=== PATIENT | female | born 1990 | race African-American/Black ===

== ENCOUNTER 2022-07-10 10:02 | Emergency (ER) | payer SELFPAY ==
[2022-07-10] MEDS ORDERED: LORAZEPAM 1 MG TABLET ONE (10:23)
[2022-07-10 11:15] LABS: Troponin High Sensitivity 4.5 pg/mL (<58.9)
[2022-07-10 11:33] LABS: Absolute Lymphocytes (CBC) 2.5 K/uL (0.7-4.9); Hematocrit 42.4 % (36.0-45.0); Lymphocytes % 29.2 % (15.3-44.8); MCV 92.9 fL (80-100); RBC Red Blood Cell Count 4.57 M/uL (3.86-4.86)
--- NOTE | 2022-07-10 11:40 | ER ---
Nurse's Notes [facility] Name: Milagro Steele Age: 31 yrs Sex: Female : 1990 Arrival Date: 07/10/2022 Time: 10:07 Bed 5 Private MD: Diagnosis: Generalized anxiety disorder Presentation: 07/10 10:10 Chief complaint: Patient states: came from [facility], they are having trouble kr3 keeping her blood pressure down and the back of my head feels like someone is hitting it. when taking a deep breath it causes chest pain. Coronavirus screen: Vaccine status: Patient reports being unvaccinated. Client denies travel out of the [place] in the last 14 days. Ebola Screen: Patient denies travel to an Ebola-affected area in the 21 days before illness onset. Initial Sepsis Screen: Does the patient meet any 2 criteria? No. Patient's initial sepsis screen is negative. Does the patient have a suspected source of infection? No. Patient's initial sepsis screen is negative. Risk Assessment: Do you want to hurt yourself or someone else? Patient reports no desire to harm self or others. Onset of symptoms was July 09, 2022. 10:10 Method Of Arrival: Ambulatory kr3 10:10 Acuity: SAM 3 kr3 Triage Assessment: 10:18 General: Appears distressed, uncomfortable, Behavior is cooperative, appropriate for kr3 age, anxious, crying. Pain: Complains of pain in chest and back with inspiration. Historical: - Allergies: 10:14 No Known Allergies; kr3 - PMHx: 10:14 Hypertensive disorder; Anxiety; Depressive disorder; kr3 - PSHx: 10:14 removal of ovarian cyst; kr3 - Immunization history:: Adult Immunizations not up to date. - Social history:: Smoking status: Patient reports the use of cigarette tobacco products, smokes one-half pack cigarettes per day. Screenin:48 Abuse screen: Denies threats or abuse. Nutritional screening: No deficits noted. vg1 Tuberculosis screening: No symptoms or risk factors identified. Fall Risk No fall in past 12 months (0 pts). No secondary diagnosis (0 pts). IV access (20 points). Ambulatory Aid- None/Bed Rest/Nurse Assist (0 pts). Gait- Normal/Bed Rest/Wheelchair (0 pts) Mental Status- Oriented to own ability (0 pts). Total Guzmán Fall Scale indicates No Risk (0-24 pts). Assessment: 10:22 General: Appears uncomfortable, obese, Behavior is cooperative, anxious, crying. Pain: vg1 Complains of pain in chest Pain currently is 10 out of 10 on a pain scale. Pain began 1 day ago. Noted to be crying. Neuro: Level of Consciousness is awake, alert, obeys commands, Oriented to person, place, time, situation, Reports blurred vision headache photophobia. Cardiovascular: Patient's skin is warm and dry. Respiratory: Airway is patent Respiratory effort is even, unlabored. GI: Abdomen is distended, non-distended, Patient currently denies nausea, tolerance of food. : No signs and/or symptoms were reported regarding the genitourinary system. EENT: No signs and/or symptoms were reported regarding the EENT system. Derm: Skin is pink, warm \T\ dry. Musculoskeletal: Circulation, motion, and sensation intact. 12:35 Reassessment:. Neuro: Level of Consciousness is awake, alert, obeys commands, Oriented aa5 to person, place, time, situation. Respiratory: Airway is patent Respiratory effort is even, unlabored, Respiratory pattern is regular, symmetrical. Derm: Skin is dry, Skin is normal, Skin temperature is warm. 12:35 General: Appears comfortable. aa5 Vital Signs: 10:10 BP 130 / 86; Pulse 82; Resp 20; Temp 98.9; Pulse Ox 100% on R/A; Weight 122.47 kg; kr3 Height 5 ft. 4 in. (162.56 cm); Pain 10/10; 10:30 BP 140 / 101; Pulse 80; Resp 17; Pulse Ox 99% on R/A; vg1 11:07 BP 119 / 83; Pulse 76; Resp 20; Pulse Ox 99% on R/A; vg1 10:10 Body Mass Index 46.34 (122.47 kg, 162.56 cm) kr3 ED Course: 10:07 Patient arrived in ED. am2 10:07 [facility] jh7 10:07 John Oh MD is Attending Physician. jh7 10:14 Triage completed. kr3 10:19 Arm band placed on right wrist. kr3 10:20 Joan Ferrara, RN is Primary Nurse. vg1 10:40 Missed attempt(s): 20 gauge in left antecubital area. Bleeding controlled, band aid aa5 applied, catheter tip intact. 10:42 Initial lab(s) drawn, by me, sent to lab. Inserted saline lock: 22 gauge in left aa5 antecubital area, using aseptic technique. Blood collected. 10:48 Patient has correct armband on for positive identification. Placed in gown. Bed in low vg1 position. Call light in reach. Side rails up X 1. Client placed on continuous cardiac and pulse oximetry monitoring. NIBP monitoring applied. 12:35 No provider procedures requiring assistance completed. IV discontinued, intact, aa5 bleeding controlled, No redness/swelling at site. Pressure dressing applied. Administered Medications: 10:22 Drug: Ativan (LORazepam) 1 mg Route: PO; vg1 Medication: 10:22 VIS not applicable for this client. vg1 Outcome: 11:40 Discharge ordered by . 7 12:35 Discharged to home ambulatory. aa5 12:35 Condition: improved 12:35 Discharge instructions given to patient, Instructed on discharge instructions, follow up and referral plans. Demonstrated understanding of instructions, follow-up care. 12:38 Patient left the ED. Signatures: Sherry Harley, RN RN aa5 Debi Nicholson RN RN Eunice Duffy Victoria, RN RN vg1 Radha Kumari, PRODUCTION SERVICE MANAGER PRODUCTION SERVICE MANAGER 7 Jessica Avilez RN RN kr3
--- NOTE | 2022-07-10 11:40 | EDPHYS ---
Physician Documentation [facility] Name: Milagro Steele Age: 31 yrs Sex: Female : 1990 Arrival Date: 07/10/2022 Time: 10:07 Bed 5 Private MD: John Guerin HPI: 07/10 10:19 This 31 yrs old Black Female presents to ER via Ambulatory with complaints of High jh7 Blood Pressure. 10:19 The patient has elevated blood pressure and discovered this [facility]. Onset: The jh7 symptoms/episode began/occurred 2 day(s) ago. Associated signs and symptoms: Pertinent positives: headache, Anxiety, Pertinent negatives: chest pain, dizziness, dyspnea, nausea, visual changes, vomiting. 31-year-old female presents for anxiety and hypertension for 2 days. The patient states she was seeking rehab at [facility] but that her blood pressure was elevated so they sent her to the ER. States that she has a history of anxiety and high blood pressure, but does not take any medication. Denies chest pain, SOB, dizziness, syncope, or visual changes.. Historical: - Allergies: 10:14 No Known Allergies; kr3 - PMHx: 10:14 Hypertensive disorder; Anxiety; Depressive disorder; kr3 - PSHx: 10:14 removal of ovarian cyst; kr3 - Immunization history:: Adult Immunizations not up to date. - Social history:: Smoking status: Patient reports the use of cigarette tobacco products, smokes one-half pack cigarettes per day. ROS: 10:19 Constitutional: Negative for fever, chills, and weight loss, Eyes: Negative for injury, jh7 pain, redness, and discharge, ENT: Negative for injury, pain, and discharge, Neck: Negative for injury, pain, and swelling, Cardiovascular: Negative for chest pain, palpitations, and edema, Respiratory: Negative for shortness of breath, cough, wheezing, and pleuritic chest pain, Back: Negative for injury and pain, MS/Extremity: Negative for injury and deformity, Skin: Negative for injury, rash, and discoloration, Neuro: Negative for headache, weakness, numbness, tingling, and seizure. 10:19 Psych: Positive for anxiety, Negative for depression. 10:19 All other systems are negative. Exam: 10:19 Head/Face: Normocephalic, atraumatic. Eyes: Pupils equal round and reactive to light, [facility] extra-ocular motions intact. Lids and lashes normal. Conjunctiva and sclera are non-icteric and not injected. Cornea within normal limits. Periorbital areas with no swelling, redness, or edema. Cardiovascular: Regular rate and rhythm with a normal S1 and S2. No gallops, murmurs, or rubs. Normal PMI, no JVD. No pulse deficits. Respiratory: Lungs have equal breath sounds bilaterally, clear to auscultation and percussion. No rales, rhonchi or wheezes noted. No increased work of breathing, no retractions or nasal flaring. Abdomen/GI: Soft, non-tender, with normal bowel sounds. No distension or tympany. No guarding or rebound. No evidence of tenderness throughout. Back: No spinal tenderness. No costovertebral tenderness. Full range of motion. Skin: Warm, dry with normal turgor. Normal color with no rashes, no lesions, and no evidence of cellulitis. MS/ Extremity: Pulses equal, no cyanosis. Neurovascular intact. Full, normal range of motion. Neuro: Awake and alert, GCS 15, oriented to person, place, time, and situation. Motor strength 5/5 in all extremities. Sensory grossly intact. Normal gait. 10:19 Constitutional: The patient appears tearful, mildly anxious 10:38 ECG was reviewed by the Attending Physician. [facility] Vital Signs: 10:10 BP 130 / 86; Pulse 82; Resp 20; Temp 98.9; Pulse Ox 100% on R/A; Weight 122.47 kg; kr3 Height 5 ft. 4 in. (162.56 cm); Pain 10/10; 10:30 BP 140 / 101; Pulse 80; Resp 17; Pulse Ox 99% on R/A; vg1 11:07 BP 119 / 83; Pulse 76; Resp 20; Pulse Ox 99% on R/A; vg1 10:10 Body Mass Index 46.34 (122.47 kg, 162.56 cm) [facility] MDM: 10:07 Patient medically screened. [facility] 11:40 Differential diagnosis: Anxiety, hypertensive urgency, panic attack. Data reviewed: [facility] vital signs, nurses notes, lab test result(s), EKG. Data interpreted: tableman: rate is 72 beats/min, rhythm is normal sinus rhythm, Pulse oximetry: is 99 %. Interpretation: normal. Counseling: I had a detailed discussion with the patient and/or guardian regarding: the historical points, exam findings, and any diagnostic results supporting the discharge/admit diagnosis, to return to the emergency department if symptoms worsen or persist or if there are any questions or concerns that arise at home. 07/10 10:18 Order name: Basic Metabolic Panel; Complete Time: 11:18 [facility] 07/10 10:18 Order name: CBC with Diff; Complete Time: 11:38 [facility] 07/10 10:18 Order name: Troponin HS; Complete Time: 11:18 [facility] 07/10 10:18 Order name: EKG; Complete Time: 10:19 [facility] 07/10 10:18 Order name: Cardiac monitoring; Complete Time: 10:46 [facility] 07/10 10:18 Order name: EKG - Nurse/Tech; Complete Time: 10:46 [facility] 07/10 10:18 Order name: IV Saline Lock; Complete Time: 10:46 [facility] 07/10 10:18 Order name: Labs collected and sent; Complete Time: :46 [facility] 07/10 10:18 Order name: O2 Per Protocol; Complete Time: :46 [facility] 07/10 10:18 Order name: O2 Sat Monitoring; Complete Time: :46 [facility] EC:38 Rate is 85 beats/min. Rhythm is regular. QRS [place] is Normal. MT interval is normal at 7 166 msec. QRS interval is normal at 82 msec. QT interval is normal at 392 msec. No Q waves. T waves are Normal. No ST changes noted. Clinical impression: Sinus rhythm with fusion complexes. Administered Medications: 10:22 Drug: Ativan (LORazepam) 1 mg Route: PO; vg1 Disposition Summary: 07/10/22 11:40 Discharge Ordered Location: Home [facility] Problem: new [facility] Symptoms: have improved [facility] Condition: Stable [facility] Diagnosis - Generalized anxiety disorder [facility] Followup: [facility] - With: Private Physician - When: 2 - 3 days - Reason: Recheck today's complaints Discharge Instructions: - Discharge Summary Sheet [facility] - Panic Attack 7 - Generalized Anxiety Disorder, Adult [facility] - Managing Anxiety, Adult [facility] Forms: - Medication Reconciliation Form [facility] - Thank You Letter [facility] Addendum: 07/12/2022 08:30 Co-signature as Attending Physician, John Oh MD I agree with the assessment and c granger plan of care. Signatures: Dispatcher [employer] John Merritt MD MD cha Garcia, Victoria RN RN vg1 Radha Kumari, GUI DEVELOPER GUI DEVELOPER jh7 Jessica Avilez RN RN kr3
[2022-07-10 12:53] VITALS: TEMP 98.9
[2022-07-10 13:05] VITALS: BP 119/83; O2SAT 99
--- NOTE | 2022-07-12 19:18 | EKG ---
Test Date: 2022-07-10 Test Time: 10:31:19 Textile Cutting Machine Operator: MARISSA MEASUREMENT RESULTS: Intervals: Rate: 85 FL: 166 QRSD: 82 QT: 392 QTc: 466 [place]: P: 42 FL: 166 QRS: -20 T: 13 INTERPRETIVE STATEMENTS: Sinus rhythm with fusion complexes Otherwise normal ECG No previous ECG available for comparison Electronically Signed On 07-12-22 19:11:07 LABOR RELATIONS TEACHER by Andriy Darden
== END 2022-07-10 12:38 | disposition home or self-care (01) ==
LOC: ER 10:02
DX: F41.1 Generalized anxiety disorder (principal); F17.210 Nicotine dependence, cigarettes, uncomplicated
CPT/HCPCS: 36415; 80048; 84484; 85025; 93005; 99283

== ENCOUNTER 2022-07-14 08:38 | Emergency (ER) | payer SELFPAY ==
--- OUTSIDE RECORDS SUMMARY | 2022-07-14 08:43 | XMS REPORT | Continuity of Care Document ---
:1990 Author Organization [facility] t Address [address] [place] [address] Care Team Providers Name Role Phone TRICE SUN Attending Clinician Unavailable GRIS DELEON Attending Clinician Unavailable REBEKAH CEJA Attending Clinician Unavailable IAIN FLORES Attending Clinician Unavailable PEEWEE BURCIAGA Attending Clinician Unavailable TRICE SUN Admitting Clinician Unavailable GRIS DELEON Admitting Clinician Unavailable REBEKAH CEJA Admitting Clinician Unavailable IAIN FLORES Admitting Clinician Unavailable DO TARAH CLAY Admitting Clinician Unavailable Problems Condition Condition Condition Status Onset Resolution Last Treating Co mments Source Name Details Category Date Date Treatment Clinician Date Muscle Muscle Problem Active 2020-[address] [facility]30 [facility] (LUF/LI V/SA) Vaginal Vaginal Problem Active [facility] discharge discharge 9-06 [facility] 00:00: Memoria 00 l (LUF/LI V/SA) Abscess Abscess Problem Active [facility] 1[facility]08 [facility] 00 l (LUF/LI V/SA) Abscess of Abscess of Problem Active [facility] skin skin 1-05 [facility] AND/OR AND/OR 00:00: [facility]oria subcutaneo subcutaneo 00 l us tissue us tissue (LUF /LI V/SA) Urinary Urinary Problem Active 2017-[address] [facility] tract tract 2-27 [facility] infectious infectious 00:00: Me moria disease disease 00 l (LUF/LI V/SA) Epigastric Epigastric Problem Active 2017-[address] pain pain 2-27 [facility] 00:[facility] 00 l (LUF/LI V/SA) Acute Acute Problem Active 2018-[address] [facility] bronchitis bronchitis 1-24 [place] 00:[place]: [place] 00 l (LUF/LI V/SA) Viral Viral Problem Active [facility] syndrome syndrome 5-18 [facility] 00:[facility]: [facility] 00 l (LUF/LI V/SA) Backache Backache Problem [facility] l (LUF/LI V/SA) Viral Viral Problem Active [facility] pharyngiti pharyngiti 6 [place] s 00:00: Memoria 00 l (LUF/LI V/SA) Abdominal Abdominal Problem Active [facility] pain pain 01-22 [facility] 00:[facility]: [facility] 00 l (LUF/LI V/SA) Allergies, Adverse Reactions, Alerts Allergy Allergy Status Severity Reaction(s) Onset Inactive Treating Comm ents Source Name Type Date Date Clinician No Known DA Active Unknown [facility] Drug 01-22 [facility] Allergie 00:00: Memoria s 00 l (LUF/LI V/SA) Medications Ordered Filled Start Stop Current Ordering Indication Dosage Frequency Signature Comments Components Source Medication Medication Date Date Medication? Clinician (SIG) Name Name bromphenira bromphenira Yes 5mL Q7.00H [facility] mine mine [facility] maleate 0.4 maleate 0.4 M emoria MG/ML / MG/ML / l dextrometho dextrometho ( LUF/LI rphan rphan V/SA) hydrobromid hydrobromid e 2 MG/ML / e 2 MG/ML / pseudoephed pseudoephed rine rine hydrochlori hydrochlori de 6 MG/ML de 6 MG/ML Oral Oral Solution Solution cephALEXin cephALEXin Yes 500mg 4xD [facility] l (LUF/LI V/SA) cyclobenzap cyclobenzap Yes 10mg 3xD [facility] rine 10 mg rine 10 mg Angela es tablet tablet Memoria l (LUF/LI V/SA) cyclobenzap cyclobenzap Yes 5mg [facility]xD [facility] rine rine [facility] hydrochlori hydrochlori M emoria de 5 MG de 5 MG l Oral Tablet Oral Tablet ( LUF/LI V/SA) nitrofurant nitrofurant Yes 100mg 2xD [facility] oin, oin, [facility] macrocrysta macrocrysta M emoria ls 25 MG / ls 25 MG / l nitrofurant nitrofurant ( LUF/LI oin, oin, V/SA) monohydrate monohydrate 75 MG Oral 75 MG Oral Capsule Capsule omeprazole omeprazole Yes 20mg 1xD [facility] 20 MG 20 MG [facility] Delayed Delayed [facility] Release Release l Oral Tablet Oral Tablet ( LUF/LI V/SA) Ondansetron Ondansetron Yes 4mg [facility]xD [facility] Oral Oral [facility] Disintegrat Disintegrat M emoria ing Tablet ing Tablet l (LUF/LI V/SA) sulfamethox sulfamethox Yes [address] [facility] azole 800 azole 800 [facility] MG / MG / [facility] trimethopri trimethopri l m 160 MG m 160 MG (LUF/LI Oral Tablet Oral Tablet V /SA) bromphenira bromphenira Yes 5mL Q7.00H orally [facility] mine mine every 6 to [facility] maleate 0.4 maleate 0.4 8 hours as Memoria MG/ML / MG/ML / needed. l dextrometho dextrometho ( LUF/LI rphan rphan V/SA) hydrobromid hydrobromid e 2 MG/ML / e 2 MG/ML / pseudoephed pseudoephed rine rine hydrochlori hydrochlori de 6 MG/ML de 6 MG/ML Oral Oral Solution Solution cephALEXin cephALEXin Yes 500mg 4xD orally [facility] every 6 [facility] hours (7 [facility] days) l (LUF/LI V/SA) cyclobenzap cyclobenzap Yes 10mg 3xD orally [address] [facility] rine 10 mg rine 10 mg times per [facility] tablet tablet day as [facility] needed. l (for (LUF/LI muscle V/SA) spasms) cyclobenzap cyclobenzap Yes 5mg 3xD orally [address] [facility] rine rine times per [facility] hydrochlori hydrochlori day as Mem[facility] de 5 MG de 5 MG needed. (5 l Oral Tablet Oral Tablet days) (LUF/LI V/SA) nitrofurant nitrofurant Yes 100mg 2xD orally [facility] oin, oin, every 12 [facility] macrocrysta macrocrysta hours (5 Mem[facility] ls 25 MG / ls 25 MG / days) l nitrofurant nitrofurant (must (LUF/LI oin, oin, administer V/SA) monohydrate monohydrate with a 75 MG Oral 75 MG Oral meal/food) Capsule Capsule omeprazole omeprazole Yes 20mg 1xD orally [facility] 20 MG 20 MG every day [facility] Delayed Delayed (10 days) Bg robyn Release Release l Oral Tablet Oral Tablet ( LUF/LI V/SA) Ondansetron Ondansetron Yes 4mg 4xD orally [facility] Oral Oral every 6 [facility] Disintegrat Disintegrat hours as Memoria ing Tablet ing Tablet needed. l (LUF/LI V/SA) sulfamethox sulfamethox Yes 1 2xD orally [address] [facility] [facility] azole 800 azole 800 times per [facility] MG / MG / day [facility] trimethopri trimethopri l m 160 MG m 160 MG (LUF/LI Oral Tablet Oral Tablet V /SA) Vital Signs Vital Name Observation Time Observation Value Comments Source Height 2021-07-22 15:26:00 165.1 CM Weight 2021-07-22 15:26:00 142 KG Height 2021-06-27 12:26:00 162.56 CM Weight 2021-06-27 12:26:00 137.9 KG Weight 2021-06-22 19:40:00 136 KG Height 2021-06-15 13:06:00 165.1 CM Weight 2021-06-15 13:06:00 141.8 KG Height 2021-04-29 15:39:00 162.56 CM Weight 2021-04-29 15:39:00 141.1 KG Height 2021-03-15 20:19:00 162.56 CM Weight 2021-03-15 20:19:00 145 KG Height 2021-01-22 09:38:00 162.56 CM Weight 2021-01-22 09:38:00 145 KG Body Temperature 2021-07-22 15:26:00 98.2 [degF] [facility] (F/LAUREN/SA) Pulse Rate 2021-07-22 15:26:00 70 /min [facility] (F/LAUREN/SA) Respiratory Rate 2021-07-22 15:26:00 20 /min [facility] (F/LAUREN/SA) O2% BldC Oximetry 2021-07-22 15:26:00 98 % [facility] (LUF/LAUREN/SA) BP Systolic 2021-07-22 15:26:00 148 mm[Hg] [facility] (LUF/LAUREN/SA) BP Diastolic 2021-07-22 15:26:00 76 mm[Hg] [facility] (LUF/LAUREN/SA) Height 2021-07-22 15:26:00 65 [in_i] [facility] (LUF/LAUREN/SA) Weight 2021-07-22 15:26:00 142 kg [facility] (LUF/LAUREN/SA) BMI (Body Mass Index) 2021-07-22 15:26:00 52.1 kg/m2 [facility] (LUF/LAUREN/SA) Heart Rate 2021-06-27 14:20:00 85 /min [facility] (LUF/LAUREN/SA) Pulse Rate 2021-06-27 14:20:00 84 /min [facility] (LUF/LAUREN/SA) Respiratory Rate 2021-06-27 14:20:00 27 /min [facility] (F/LAUREN/SA) O2% BldC Oximetry 2021-06-27 14:20:00 100 % [facility] (F/LAUREN/SA) Body Temperature 2021-06-27 12:26:00 98.1 [degF] [facility] (LUF/LAUREN/SA) BP Systolic 2021-06-27 12:26:00 153 mm[Hg] [facility] (LUF/LAUREN/SA) BP Diastolic 2021-06-27 12:26:00 93 mm[Hg] [facility] (LUF/LAUREN/SA) Height 2021-06-27 12:26:00 64 [in_i] [facility] (LUF/LAUREN/SA) Weight 2021-06-27 12:26:00 137.9 kg [facility] (LUF/LAUREN/SA) BMI (Body Mass Index) 2021-06-27 12:26:00 52.5 kg/m2 [facility] (F/LAUREN/SA) Body Temperature 2021-06-22 19:45:00 98.6 [degF] [facility] (LUF/LAUREN/SA) Pulse Rate 2021-06-22 19:45:00 87 /min [facility] (LUF/LAUREN/SA) Respiratory Rate 2021-06-22 19:45:00 20 /min [facility] (LUF/LAUREN/SA) O2% BldC Oximetry 2021-06-22 19:45:00 100 % [facility] (LUF/LAUREN/SA) BP Systolic 2021-06-22 19:45:00 149 mm[Hg] [facility] (LUF/LAUREN/SA) BP Diastolic 2021-06-22 19:45:00 83 mm[Hg] [facility] (LUF/LAUREN/SA) Weight 2021-06-22 19:40:00 136 kg [facility] (LUF/LAUREN/SA) Body Temperature 2021-06-15 13:06:00 98.4 [degF] [facility] (LUF/LAUREN/SA) Pulse Rate 2021-06-15 13:06:00 80 /min [facility] (LUF/LAUREN/SA) Respiratory Rate 2021-06-15 13:06:00 16 /min [facility] (LUF/LAUREN/SA) O2% BldC Oximetry 2021-06-15 13:06:00 98 % [facility] (LUF/LAUREN/SA) BP Systolic 2021-06-15 13:06:00 149 mm[Hg] [facility] (LUF/LAUREN/SA) BP Diastolic 2021-06-15 13:06:00 84 mm[Hg] [facility] (LUF/LAUREN/SA) Height 2021-06-15 13:06:00 65 [in_i] [facility] (F/LAUREN/SA) Weight 2021-06-15 13:06:00 141.8 kg [facility] (LUF/LAUREN/SA) BMI (Body Mass Index) 2021-06-15 13:06:00 52 kg/m2 [facility] (LUF/LAUREN/SA) Body Temperature 2021-04-29 15:39:00 98 [degF] [facility] (LUF/LAUREN/SA) Pulse Rate 2021-04-29 15:39:00 80 /min [facility] (LUF/LAUREN/SA) Respiratory Rate 2021-04-29 15:39:00 19 /min [facility] (LUF/LAUREN/SA) O2% BldC Oximetry 2021-04-29 15:39:00 100 % [facility] (LUF/LAUREN/SA) BP Systolic 2021-04-29 15:39:00 171 mm[Hg] [facility] (LUF/LAUREN/SA) BP Diastolic 2021-04-29 15:39:00 99 mm[Hg] [facility] (LUF/LAUREN/SA) Height 2021-04-29 15:39:00 64 [in_i] [facility] (LUF/LAUREN/SA) Weight 2021-04-29 15:39:00 141.1 kg [facility] (LUF/LAUREN/SA) BMI (Body Mass Index) 2021-04-29 15:39:00 53.7 kg/m2 [facility] (LUF/LAUREN/SA) Body Temperature 2021-03-15 20:25:00 98.6 [degF] [facility] (LUF/LAUREN/SA) Pulse Rate 2021-03-15 20:25:00 102 /min [facility] (LUF/LAUREN/SA) Respiratory Rate 2021-03-15 20:25:00 20 /min [facility] (LUF/LAUREN/SA) O2% BldC Oximetry 2021-03-15 20:25:00 99 % [facility] (LUF/LAUREN/SA) BP Systolic 2021-03-15 20:25:00 169 mm[Hg] [facility] (LUF/LAUREN/SA) BP Diastolic 2021-03-15 20:25:00 96 mm[Hg] [facility] (LUF/LAUREN/SA) Height 2021-03-15 20:19:00 64 [in_i] [facility] (LUF/LAUREN/SA) Weight 2021-03-15 20:19:00 145 kg [facility] (LUF/LAUREN/SA) BMI (Body Mass Index) 2021-03-15 20:19:00 55.2 kg/m2 [facility] (LUF/LAUREN/SA) Heart Rate 2021-01-22 09:51:00 75 /min [facility] (LUF/LAUREN/SA) Pulse Rate 2021-01-22 09:51:00 76 /min [facility] (LUF/LAUREN/SA) Respiratory Rate 2021-01-22 09:51:00 14 /min [facility] (F/LAUREN/SA) O2% BldC Oximetry 2021-01-22 09:51:00 97 % [facility] (LUF/LAUREN/SA) BP Systolic 2021-01-22 09:51:00 115 mm[Hg] [facility] (LUF/LAUREN/SA) BP Diastolic 2021-01-22 09:51:00 79 mm[Hg] [facility] (LUF/LAUREN/SA) Body Temperature 2021-01-22 09:38:00 98.2 [degF] [facility] (F/LAUREN/SA) Height 2021-01-22 09:38:00 64 [in_i] [facility] (LUF/LAUREN/SA) Weight 2021-01-22 09:38:00 145 kg [facility] (F/LAUREN/SA) BMI (Body Mass Index) 2021-01-22 09:38:00 55.2 kg/m2 [facility] (F/LAUREN/SA) Body Temperature 2019-02-20 13:25:00 98 F [facility] (LUF/LAUREN/SA) Pulse Rate 2019-02-20 13:25:00 82 /min [facility] (F/LAUREN/SA) Respiratory Rate 2019-02-20 13:25:00 18 /min [facility] (F/LAUREN/SA) O2% BldC Oximetry 2019-02-20 13:25:00 97 % [facility] (F/LAUREN/SA) BP Systolic 2019-02-20 13:25:00 120 mm[Hg] [facility] (LUF/LAUREN/SA) BP Diastolic 2019-02-20 13:25:00 74 mm[Hg] [facility] (LUF/LAUREN/SA) Height 2019-02-20 13:25:00 67 in [facility] (LUF/LAUREN/SA) Weight Measured 2019-02-20 13:25:00 294.53 lbs [facility] (LUF/LAUREN/SA) BMI (Body Mass Index) 2019-02-20 13:25:00 46.2 kg/m2 [facility] (LUF/LAUREN/SA) Pulse Rate 2018-12-26 10:30:00 80 /min [facility] (LUF/LAUREN/SA) Respiratory Rate 2018-12-26 10:30:00 18 /min [facility] (F/LAUREN/SA) O2% BldC Oximetry 2018-12-26 10:30:00 97 % [facility] (LUF/LAUREN/SA) BP Systolic 2018-12-26 10:30:00 142 mm[Hg] [facility] (LUF/LAUREN/SA) BP Diastolic 2018-12-26 10:30:00 62 mm[Hg] [facility] (LUF/LAUREN/SA) Body Temperature 2018-12-26 09:12:00 98.5 F [facility] (F/LAUREN/SA) Height 2018-12-26 09:12:00 64 in [facility] (LUF/LAUREN/SA) Weight Measured 2018-12-26 09:12:00 328.48 lbs [facility] (LUF/LAUREN/SA) BMI (Body Mass Index) 2018-12-26 09:12:00 56.7 kg/m2 [facility] (F/LAUREN/SA) Body Temperature 2018-08-31 12:20:00 98.3 F [facility] (LUF/LAUREN/SA) Pulse Rate 2018-08-31 12:20:00 66 /min [facility] (LUF/LAUREN/SA) Respiratory Rate 2018-08-31 12:20:00 20 /min [facility] (LUF/LAUREN/SA) O2% BldC Oximetry 2018-08-31 12:20:00 99 % [facility] (LUF/LAUREN/SA) BP Systolic 2018-08-31 12:20:00 117 mm[Hg] [facility] (LUF/LAUREN/SA) BP Diastolic 2018-08-31 12:20:00 80 mm[Hg] [facility] (LUF/LAUREN/SA) Height 2018-08-31 12:20:00 64 in [facility] (F/LAUREN/SA) Weight Measured 2018-08-31 12:20:00 315.48 lbs [facility] (LUF/LAUREN/SA) BMI (Body Mass Index) 2018-08-31 12:20:00 54.5 kg/m2 [facility] (F/LAUREN/SA) Body Temperature 2018-08-28 15:06:00 98 F [facility] (F/LAUREN/SA) Pulse Rate 2018-08-28 15:06:00 75 /min [facility] (LUF/LAUREN/SA) Respiratory Rate 2018-08-28 15:06:00 14 /min [facility] (F/LAUREN/SA) O2% BldC Oximetry 2018-08-28 15:06:00 99 % [facility] (F/LAUREN/SA) BP Systolic 2018-08-28 15:06:00 137 mm[Hg] [facility] (LUF/LAUREN/SA) BP Diastolic 2018-08-28 15:06:00 98 mm[Hg] [facility] (LUF/LAUREN/SA) Height 2018-08-28 15:06:00 64 in [facility] (F/LAUREN/SA) Weight Measured 2018-08-28 15:06:00 310.98 lbs [facility] (F/LAUREN/SA) BMI (Body Mass Index) 2018-08-28 15:06:00 53.7 kg/m2 [facility] (F/LAUREN/SA) Body Temperature 2018-08-19 14:10:00 98.8 F [facility] (F/LAUREN/SA) Pulse Rate 2018-08-19 14:10:00 76 /min [facility] (LUF/LAUREN/SA) Respiratory Rate 2018-08-19 14:10:00 18 /min [facility] (LUF/LAUREN/SA) O2% BldC Oximetry 2018-08-19 14:10:00 100 % [facility] (LUF/LAUREN/SA) BP Systolic 2018-08-19 14:10:00 137 mm[Hg] [facility] (LUF/LAUREN/SA) BP Diastolic 2018-08-19 14:10:00 93 mm[Hg] [facility] (LUF/LAUREN/SA) Height 2018-08-19 14:10:00 65 in [facility] (LUF/LAUREN/SA) Weight Measured 2018-08-19 14:10:00 316.58 lbs [facility] (LUF/LAUREN/SA) BMI (Body Mass Index) 2018-08-19 14:10:00 52.7 kg/m2 [facility] (LUF/LAUREN/SA) Body Temperature 2018-07-17 14:12:00 98.5 F [facility] (LUF/LAUREN/SA) Pulse Rate 2018-07-17 14:12:00 54 /min [facility] (LUF/LAUREN/SA) Respiratory Rate 2018-07-17 14:12:00 20 /min [facility] (LUF/LAUREN/SA) O2% BldC Oximetry 2018-07-17 14:12:00 96 % [facility] (LUF/LAUREN/SA) BP Systolic 2018-07-17 14:12:00 123 mm[Hg] [facility] (LUF/LAUREN/SA) BP Diastolic 2018-07-17 14:12:00 84 mm[Hg] [facility] (LUF/LAUREN/SA) Weight Measured 2018-07-17 14:12:00 307.1 lbs [facility] (LUF/LAUREN/SA) Body Temperature 2018-01-08 12:45:00 98.6 F [facility] (LUF/LAUREN/SA) Respiratory Rate 2018-01-08 12:45:00 14 /min [facility] (LUF/LAUREN/SA) O2% BldC Oximetry 2018-01-08 12:45:00 100 % [facility] (LUF/LAUREN/SA) BP Systolic 2018-01-08 12:45:00 130 mm[Hg] [facility] (LUF/LAUREN/SA) BP Diastolic 2018-01-08 12:45:00 78 mm[Hg] [facility] (LUF/LAUREN/SA) Height 2018-01-08 12:45:00 64 in [facility] (LUF/LAUREN/SA) Weight Measured 2018-01-08 12:45:[address] [facility] S [facility] (LUF/LAUREN/SA) BMI (Body Mass Index) 2018-01-08 12:45:00 51 [facility] (LUF/LAUREN/SA) Body Temperature 2017-11-15 13:52:00 99 F [facility] (LUF/LAUREN/SA) Respiratory Rate 2017-11-15 13:52:00 20 /min [facility] (LUF/LAUREN/SA) O2% BldC Oximetry 2017-11-15 13:52:00 96 % [facility] (LUF/LAUREN/SA) BP Systolic 2017-11-15 13:52:00 120 mm[Hg] [facility] (LUF/LAUREN/SA) BP Diastolic 2017-11-15 13:52:00 81 mm[Hg] [facility] (LUF/LAUREN/SA) Weight Measured 2017-11-15 13:52:00 303.31 lbs [facility] (F/LAUREN/SA) Procedures This patient has no known procedures. Encounters Start End Encounter Admission Attending Care Care Encounter Source Date/Time Date/Time Type Type Clinicians Facility Department ID 2021-07-22 2021-07-22 PROC&TX [facility] [id number] [facility] 15:12:00 16:18:00 NOT [place] Samantha CARRIED DARVIN [facility] OUT PT [address] (LUF/LI A[address], V/SA) [place] [id number] 2021-07-22 2021-07-22 Inpatient [facility] [id number] 00:00:00 00:00:00 [place] [id number] [facility], [id number] Memor ia [id number] (LUF/[address] A[address], V/SA) [place], [place] [address] 2021-07-22 2021-07-22 Inpatient [facility] [id number] [facility] St 00:00:00 00:00:00 [place] [id number] [facility], [id number] Memor ia [address] [id number] l [address] (LUF/LI AVE, V/[place]) [place] [address] 2021-07-22 2021-07-22 Inpatient [facility] [id number] [facility] St 00:00:00 00:00:00 [place] [id number] [facility], [id number] Memor ia [address] [id number] l [address] (LUF/LI AVE, V/[place]) [place] [address] 2021-07-22 2021-07-22 Inpatient [facility] [id number] [facility] St 00:00:00 00:00:00 [place] [id number] [facility], [id number] Memor ia [address] [id number] l [address] (LUF/LI AVE, V/[place]) [place] [address] 2021-06-27 2021-06-27 UNSPECIFGREGG SUN, [facility] [id number] [facility] St 12:15:00 15:04:00 Augusta CARNES [place] [facility] [place] Memori a PAIN [address] (LUF/LI A[address], V/[place]) [place] [address] 2021-06-27 2021-06-27 Inpatient [facility] [id number] [facility] St 00:00:00 00:00:00 [place] [id number] [facility], [id number] Memor ia [address] [id number] l [address] (LUF/LI A[address], V/[place]) [place] [address] 2021-06-27 2021-06-27 Inpatient [facility] [id number] [facility] 00:[facility] 00:00:00 [place] [id number] [facility], [id number] Memor ia [address] [id number] l [address] (LUF/LI A[address], V/[place]) [place] [address] 2021-06-22 2021-06-22 KRISTIAN DELEON, [facility] [id number] [facility] St 19:14:00 21:03:00 MSC F ED LANDRY [facility] s SH[facility], [facility] RA INIT [address] ([address]F/LI A[address], V/[place]) [place] [address] 2021-06-22 2021-06-22 [facility]patient [facility] [id number] 00:00:00 00:00:00 [place] [id number] [facility], [id number] Memor ia [address] [id number] [address] ([address]F/LI A[address], V/[place]) [place] [address] 2021-06-22 2021-06-22 Inpatient [facility] [id number] [facility] St 00:00:00 00:00:00 [place] [id number] [facility], [id number] Memor ia [address] [id number] l [address] (LUF/LI AVE, V/[place]) [place] [address] 2021-06-15 2021-06-15 PROC&TX [facility] [id number] [facility] St 12:44:00 13:35:00 NOT [facility], [facility] OUT PT [address] (LUF/LI A[address], V/[place]) [place] [address] 2021-06-15 2021-06-15 Inpatient [facility] [id number] 00:00:00 00:00:00 [place] [id number] [facility], [id number] Memor ia [address] [id number] [address] (LUF/LI A[address], V/[place]) [place] [address] 2021-06-15 2021-06-15 Inpatient [facility] [id number] 00:00:00 00:00:00 [place] [id number] [facility], [id number] Memor ia [address] [id number] [address] (LUF/LI A[address], V/[place]) [place] [address] 2021-06-04 2021-06-04 CONTACT O BRENNA, [facility] [id number] [facility] St 09:44:00 23:59:00 W/AND REBEKAH [facility] [address] COVID-19 [address] ([address], V/SA) [place] [address] 2021-06-04 2021-06-04 Inpatient [facility] [id number] [facility] St 00:00:00 00:00:00 [place] [id number] [facility], [id number] Memor ia [address] [id number] l TANNA (LUF/LI AVE, V/SA) [place] [address] 2021-06-04 2021-06-04 Inpatient [facility] [id number] [facility] St 00:00:00 00:00:00 [place] [id number] [facility], [id number] Memor ia [address] [id number] l TANNA (LUF/LI A[address], V/SA) [place] [address] 2021-06-04 2021-06-04 Inpatient [facility] [id number] [facility] 00:[facility]:00 [place] [id number] [facility], [id number] Memor ia [address] [id number] l TANNA (LUF/LI A[address], V/SA) [place] [address] 2021-04-29 2021-04-29 OTH SPEC E [facility] [id number] 15:24:00 17:37:00 NONINFLAMM [facility] ATORY D/O [facility] a VAGINA [address] [place] ([address]LI [address], V/SA) DNOTE STOREY [id number] 2021-04-29 2021-04-29 Inpatient [facility] [id number] [facility] St 00:00:00 00:00:00 [place] [id number] [facility], [id number] Memor ia [address] [id number] l [place] ([address]F/LI [address], V/SA) DONTE STOREY [id number] 2021-04-29 2021-04-29 Inpatient [facility] [id number] [facility] St 00:00:00 00:00:00 [place] [id number] [facility], [id number] Memor ia [address] [id number] l [place] (LUF/LI [address], V/SA) [place] [id number] 2021-03-15 2021-03-15 PROC&TX [facility] [id number] [facility] 20:01:00 21:08:00 [facility] OUT PT [address] LEAVE [place] ([address], V/SA) [place] STOREY [address] 2021-03-15 2021-03-15 Inpatient [facility] [id number] [facility] St 00:00:00 00:00:00 [place] [id number] [facility] [id number] Memor ia [address] [id number] l [place] (LUF/LI A[address], V/SA) [place] [address] 2021-03-15 2021-03-15 Inpatient [facility] [id number] [facility] St 00:00:00 00:00:00 [place] [id number] [facility], [id number] Memor ia [address] [id number] l [place] (LUF/LI A[address], V/SA) [place] [address] 2021-01-22 2021-01-22 ACUTE UP E [facility] [facility] [id number] [facility] St 09:24:00 10:58:00 RESPIRATOR [facility] Y [place], Memoria INFECTION [address] (LUF/LI A[address], V/SA) [place] [address] 2021-01-22 2021-01-22 Inpatient [facility] 2894 [id number] [facility] 00:[facility]:00 [place] [id number] Angela es [place], [id number] Memor ia [address] [id number] [address] (LUF/LI AVE, V/SA) [place] [address] 2021-01-22 2021-01-22 Inpatient [facility] [id number] 00:[facility] 00:00:00 [place] [id number] Angela [facility], [id number] Memor ia [address] [id number] [address] (LUF/LI A[address], V/SA) [place] [address] 2019-02-20 2019-02-20 ENC SCREEN GUALBERTO, [facility] [place] [id number] 13:23:00 14:50:00 INFECTIONS JASIRI [place] Angela es SEXL [facility] TRANSMS [address] ([address]F/LI A[address], V/SA) [place] [address] 2018-12-26 2018-12-26 LEFT LOWER E MARK, [facility] [place] [id number] 09:02:00 10:36:00 QUADRANT CLEMENT [place] [facility] PA[facility] [address] ([address]/LI A[address], V/SA) [place] [address] 2018-08-31 2018-08-31 ENC SURG DANNA, [facility] [id number] 12:08:00 13:20:00 AFTRCARE TARAH [facility] FLW SURG [facility] SKN&SUBQ [address] ([address]F/LI A[address], V/SA) [place] [address] 2018-08-28 2018-08-28 ABSCESS OF Rocael BURCIAGA, [facility] [place] [id number] 14:57:00 15:43:00 THE BREAST [facility] [place], Memor ia [address] ([address]/LI [address], V/SA) [place] [address] 2018-08-19 2018-08-19 UTI SITE E DANNA, [facility] [place] [id number] 14:02:00 16:10:00 [facility] [address] ([address]/LI [address], V/SA) [place] [address] 2018-07-17 2018-07-17 Inpatient 1 MARK, [facility] [place] [id number] 13:41:00 17:04:00 [facility] [address] ([address]F/LI [address], V/SA) [place] [address] 2018-01-08 2018-01-08 VIRAL E PANCHO, [facility] [place] [id number] 12:25:00 14:20:00 INTESTINAL [facility]FECTION [place] UNSPEC [address] ([address]/LI A[address], V/SA) [place] [address] 2017-11-15 2017-11-15 OTH DZ E PANCHO, [facility] [place] [id number] 13:46:00 17:09:00 COMP PREG [facility] CHILDBIRTH [place], [facility]ERPER [address] ([address]F/LI A[address], V/SA) [place] [address] Results Test Description Test Time Test Comments Results Result Comments Source STAT LAB TEST, Serum Qualitative 2021-06-27 13:51: 00 Test Item Value Reference Range Interpretation Comme nts (Serum) (test code = PREGS) Negative STLMLSTAT LAB CBC WITH AUTO [id number] 13:48:00 Test Item Value Reference Range Interpretation Comments WBC (test code = WBC) 8.20 10\\S\\3/ul 4.80-10.80 RBC (test code = RBC) 4.30 10\\S\\6/ul 4.20-5.40 Hemoglobin (test code = HGB) 13.3 gm/dl 12.0-14.0 Hematocrit (test code = HCT) 40.9 % 37.0-47.0 MCV (test code = MCV) 95.1 fL 81.0-99.0 MCH (test code = MCH) 30.9 pg 27.0-31.0 MCHC (test code = MCHC) 32.5 gm/dl 33.0-37.0 L Platelet (test code = PLT) 448 10\\S\\3/ul 130-400 H RDW (test code = RDWVC) 12.0 % 11.5-14.5 MPV (test code = MPV) 10.2 fL 7.4-10.4 A NE% (test code = NE) 53.9 % 42.0-75.0 LY% (test code = LY) 39.4 % 13.0-42.0 MO% (test code = MO) 5.0 % 4.0-14.0 EO% (test code = EO) 1.0 % 1.0-3.0 BA% (test code = BA) 0.6 % 1.0-3.0 L IG% (test code = IG%) 0.1 % 0.0-0.4 [facility] LAB CHEM [id number] 13:47:00 Test Item Value Reference Range Interpretation Comments Sodium (test code = NA) 138 mmol/l 138-146 Potassium (test code = K) 4.5 mmol/l 3.5-4.9 IONIZED CALCIUM (test code = ICA) 1.18 1.12-1.32 AA Chloride (test code = CL) 105 mmol/l 98-109 Glucose (test code = GLU) 108 mg/dl 70-105 H Creatinine (test code = CREA) 1.0 mg/dl 0.6-1.3 BUN (test code = BUN) 10 mg/dl 6-17 CO2 (test code = CO2) 23.4 mmol/l 24.0-29.[address] [facility] , [id number] 20:22:00 Test Item Value Reference Range Interpretation Comments (Urine) (test code = Negative PREGU) ONLY AVAILABLE 8A-12MNSTLMLCORONAVIRUS 2019 (LUFKIN ONLY)2021-06-04 16:38:00 Test Item Value Reference Range Interpretation Comments COVID-19, Real Time PCR-GUILLERMINA (test Negative Negative N code = COVID) STLPREGNANCY TEST, Serum [id number] 17:56:00 Test Item Value Reference Range Interpretation Comments (Serum) (test code = Negative PREGS) STLMLXR CHEST AP/PA 1 [id number] 10:32:25 [facility]SA)Name: CLARE MCGEE : 1990 Sex: FProcedure: XR CHEST AP/PA 1 VIEWOrder Date: 01/22/2021 9:49 AMOrdering Provider: ABRIL Sultanainical Indication: [id number]: CoughComparison: July 17, 2018Findings:Cardiac size is normal.Pulmonary vasculature is normal.Mediastinal contour is normal.Aortic contour is normal.No acute infiltrates or e ffusions.There is no mass or pneumothorax.There is no evidence of active tuberculosis.There is no acute skeletal abnormality.Impression: Negative AP view of the chest.This final report was electronically signed by Dr Brian Dc MD 110:26 AMDictated By: BRIAN DCDate: 01/22/2021 10:26[facility] , [id number] 09:59:00 Test Item Value Reference Range Interpretation Comments (Urine) (test code = Negative PREGU) ONLY AVAILABLE [address] [place] [address] LAB URINALYSIS WITHOUT [id number] 09:57:00 Test Item Value Reference Range Interpretation Comments Color (test code = Yellow Lt. Yellow A UCOLR) Clarity (test code = Slightly Cloudy UCLAR) Glucose (test code = Negative Negative N UGLUC) Bilirubin (test code Negative Negative N = UBILI) Ketones (test code = Negative Negative N UKET) Specific [place] 1.025 1.005-1.030 A (test code = USPGR) Blood (test code = Negative Negative N UBLD) PH (test code = UPH) 6.0 4.5-8.0 A Protein (test code = Trace Negative A UPROT) Urobilinogen (test 2.0 See_Comment A [Automat ed code = U UROB) message] The system which generated this result transmit rosalinda reference range : 0.2. The refere nce range was not u sed to interpret th is result as normal/abnormal . Nitrite (test code = Negative Negative N UNITR) Leukocyte Esterase Trace Negative A (test code = ULEUK) [facility] RENAL & BLADDER (KIDNEYS)2019-04-14 11:25:50Procedure: US RENALOrder Date: 04/14/2019 10:44 AMOrdering Provider: IAIN Lynninical Indication: [id number]: Kidney stone. Nausea. Abdominal painComparison: NoneTechnique: Real-time ultrasonography was obtained over the kidneys and urinarybladder and safety representative images were recorded.Findings:Ri ght kidney: The kidney is normal in size. No hydronephrosis. Renal corticalechogenicity and thickness is within normal limits.Left kidney: The kidney is normal in size. No hydronephrosis. Renal corticalechogenicity and thickness is within normal limits.Bladder: Unremarkable .Impression:Unremarkable renal ultrasound.This final report was electronically signed by Dr Julio Schwartz MD 04/14/201911:19 AMDictated By: ASPEN SCHWARTZKDate: 04/14/2019 11:19[facility] [id number] 10:38:00 Test Item Value Reference Range Interpretation Comments Color (test code = UCOLR) YELLOW Clarity (test code = UCLAR) CLEAR Glucose (test code = UGLUC) NEGATIVE NEGATIVE N Bilirubin (test code = UBILI) NEGATIVE NEGATIVE N Ketones (test code = UKET) NEGATIVE NEGATIVE N Specific [place] (test code = 1.025 1.005-1.030 A USPGR) Blood (test code = UBLD) TRACE-INTACT NEGATIVE A PH (test code = UPH) 6.0 4.5-8.0 A Protein (test code = UPROT) NEGATIVE NEGATIVE N Urobilinogen (test code = U 0.2 >0.2 N UROB) Nitrite (test code = UNITR) NEGATIVE NEGATIVE N Leukocyte Esterase (test code = NEGATIVE NEGATIVE N ULEUK) WBC (test code = WBCUR) 0-5 0-5 N RBC (test code = RBCUR) 0-10 0-5 A Epithial Cells (test code = U 20-30 0-10 A EPI) Mucous (test code = UMUC) Small None Seen A Bacteria (test code = UBACT) 1+ None Seen,Trace A [facility] LAB CBC WITH AUTO [id number] 10:15:00 Test Item Value Reference Range Interpretation Comments WBC (test code = WBC) 6.52 10\\S\\3/ul 4.80-10.80 RBC (test code = RBC) 3.94 10\\S\\6/ul 4.20-5.40 L Hemoglobin (test code = HGB) 12.2 gm/dl 12.0-14.0 Hematocrit (test code = HCT) 38.6 % 37.0-47.0 MCV (test code = MCV) 98.0 fL 81.0-99.0 MCH (test code = MCH) 31.0 pg 27.0-31.0 MCHC (test code = MCHC) 31.6 gm/dl 33.0-37.0 L Platelet (test code = PLT) 358 10\\S\\3/ul 130-400 RDW (test code = RDWVC) 11.9 % 11.5-14.5 MPV (test code = MPV) 9.9 fL 7.4-10.4 A NE% (test code = NE) 58.8 % 42.0-75.0 LY% (test code = LY) 33.1 % 13.0-42.0 MO% (test code = MO) 6.1 % 4.0-14.0 EO% (test code = EO) 1.5 % 1.0-3.0 BA% (test code = BA) 0.3 % 1.0-3.0 L IG% (test code = IG%) 0.2 % 0.0-0.4 [facility] LAB CHEM [id number] 10:15:00 Test Item Value Reference Range Interpretation Comments Sodium (test code = NA) 138 mmol/l 138-146 Potassium (test code = K) 3.8 mmol/l 3.5-4.9 Chloride (test code = CL) 106 mmol/l 98-109 IONIZED CALCIUM (test code = ICA) 0.97 CO2 (test code = CO2) 25 mmol/l 24-29 Glucose (test code = GLU) 95 mg/dl 70-105 BUN (test code = BUN) 11 mg/dl 6-17 Creatinine (test code = CREA) 0.7 mg/dl 0.6-1.3 [facility] , [id number] 09:50:00 Test Item Value Reference Range Interpretation Comments (Urine) (test code = Negative PREGU) [facility]ellitekinPREGNANCY TEST, Urine [id number] 15:47:00 Test Item Value Reference Range Interpretation Comments (Urine) (test CANCELED The released value code = PREGU) Negative was c anceled by [id number] on 12/31/2018 15:4 7 If a specimen is collected by a nurse, then you MUST fill out the Collected and Collected By aguayo [facility], [id number] 07:54:00ED 7Specimen: Urine SpecimensCollected: 12/26/2018 10:19 Status: Final Last Updated: 12/27/2018 07:54 (1) ED 7 Culture Result (Final) (Final) Many Mixed Body Geri Isolated No Pathogens IsolatedSauk [facility]-L[facility]kinURINALYSIS WITH [id number] 09:59:00 Test Item Value Reference Range Interpretation Comments Color (test code = UCOLR) YELLOW Clarity (test code = UCLAR) CLEAR Glucose (test code = UGLUC) NEGATIVE NEGATIVE N Bilirubin (test code = UBILI) NEGATIVE NEGATIVE N Ketones (test code = UKET) NEGATIVE NEGATIVE N Specific [place] (test code = USPGR) 1.010 1.005-1.030 A Blood (test code = UBLD) NEGATIVE NEGATIVE N PH (test code = UPH) 8.5 4.5-8.0 A Protein (test code = UPROT) TRACE NEGATIVE A Urobilinogen (test code = U UROB) 4.0 >0.2 A Nitrite (test code = UNITR) NEGATIVE NEGATIVE N Leukocyte Esterase (test code = TRACE NEGATIVE A ULEUK) WBC (test code = WBCUR) 5-10 0-5 A RBC (test code = RBCUR) 0-5 0-5 N Epithial Cells (test code = U EPI) TNTC 0-10 A Bacteria (test code = UBACT) 3+ None Seen,Trace A [id number] 09:57:00 Test Item Value Reference Range Interpretation Comments Lipase (test code = LIPA) 70 U/L 73-393 L [facility] LAB CHEM [id number] 09:40:00 Test Item Value Reference Range Interpretation Comments Sodium (test code = NA) 142 mmol/l 138-146 Potassium (test code = K) 3.6 mmol/l 3.5-4.9 Chloride (test code = CL) 103 mmol/l 98-109 IONIZED CALCIUM (test code = ICA) 1.07 CO2 (test code = CO2) 27 mmol/l 24-29 Glucose (test code = GLU) 110 mg/dl 70-105 H BUN (test code = BUN) 15 mg/dl 6-17 Creatinine (test code = CREA) 1.0 mg/dl 0.6-1.3 [facility] LAB CBC WITH AUTO [id number] 09:38:00 Test Item Value Reference Range Interpretation Comments WBC (test code = WBC) 12.17 10\\S\\3/ul 4.80-10.80 H RBC (test code = RBC) 4.02 10\\S\\6/ul 4.20-5.40 L Hemoglobin (test code = HGB) 12.5 gm/dl 12.0-14.0 Hematocrit (test code = HCT) 39.0 % 37.0-47.0 MCV (test code = MCV) 97.0 fL 81.0-99.0 MCH (test code = MCH) 31.1 pg 27.0-31.0 H MCHC (test code = MCHC) 32.1 gm/dl 33.0-37.0 L Platelet (test code = PLT) 338 10\\S\\3/ul 130-400 RDW (test code = RDWVC) 11.8 % 11.5-14.5 MPV (test code = MPV) 10.2 fL 7.4-10.4 A NE% (test code = NE) 73.5 % 42.0-75.0 LY% (test code = LY) 19.1 % 13.0-42.0 MO% (test code = MO) 5.8 % 4.0-14.0 EO% (test code = EO) 1.3 % 1.0-3.0 BA% (test code = BA) 0.2 % 1.0-3.0 L IG% (test code = IG%) 0.1 % 0.0-0.4 [facility] LAB URINALYSIS WITHOUT [id number] 09:32:00 Test Item Value Reference Range Interpretation Comments Color (test code = UCOLR) Yellow Lt. Yellow A Clarity (test code = UCLAR) Sl Cloudy Glucose (test code = UGLUC) NEGATIVE Negative A Bilirubin (test code = UBILI) NEGATIVE Negative A Ketones (test code = UKET) NEGATIVE Negative A Specific [place] (test code = 1.015 1.005-1.030 A USPGR) Blood (test code = UBLD) NEGATIVE Negative A PH (test code = UPH) 8.5 4.5-8.0 A Protein (test code = UPROT) 30 Negative A Urobilinogen (test code = U UROB) 4.0 >0.2 A Nitrite (test code = UNITR) NEGATIVE Negative A Leukocyte Esterase (test code = Small Negative A ULEUK) [facility] LAB , [id number] 09:30:00 Test Item Value Reference Range Interpretation Comments (Urine) (test code = Negative PREGU) [facility] LAB , [id number] 15:28:00 Test Item Value Reference Range Interpretation Comments (Urine) (test code = Negative PREGU) ONLY AVAILABLE [address] [place] [address] , URINE 2018-08-19 15:05:00 Test Item Value Reference Range Interpretation Comments (Urine) (test code = Negative PREGU) ONLY AVAILABLE [facility]STAT LAB URINALYSIS WITHOUT [id number] 15:04:00 Test Item Value Reference Range Interpretation Comments Color (test code = UCOLR) Yellow Lt. Yellow A Clarity (test code = UCLAR) Clear Glucose (test code = UGLUC) NEGATIVE Negative A Bilirubin (test code = UBILI) NEGATIVE Negative A Ketones (test code = UKET) TRACE Negative A Specific [place] (test code = >=1.030 1.005-1.030 A USPGR) Blood (test code = UBLD) Trace-Intact Negative A PH (test code = UPH) 6.0 4.5-8.0 A Protein (test code = UPROT) NEGATIVE Negative A Urobilinogen (test code = U 1.0 >0.2 A UROB) Nitrite (test code = UNITR) NEGATIVE Negative A Leukocyte Esterase (test code = Moderate Negative A ULEUK) ONLY AVAILABLE [address] [place] [address]-LufkinXR CHEST 2 PA LATERAL 2018-07-17 16:32:34Procedure: XR CHEST 2 PA LATERALOrder Date: 07/17/2018 4:13 PMOrdering Provider: PATRIZIA Aguilarinical Indication: CHEST PAIN: Pain- ChestComparison: NoneFindings:Cardiac size is normal.Pulmonary vasculature is normal.Mediastinal contour is normal.Aortic contour is normal.There is no consolidation or effusion.There is no mass or pneumothorax.There is no evidence of active tuberculosis.There is no skeletal abnormality.Impression: Negative PA and lateral views of the chest.This final report was electronically signed by Dr Brian Dc MD 07/17/20184:26 PMDictated By: BRIAN DCDate: 07/17/2018 16:26[facility] , [id number] 16:11:00 Test Item Value Reference Range Interpretation Comments (Urine) (test code = Negative PREGU) ONLY AVAILABLE [address] [place] [address]-LufkinURINALYSIS WITH MICROSCOPIC 2018-01-08 13:48:00 Test Item Value Reference Range Interpretation Comments Color (test code = UCOLR) YELLOW Clarity (test code = UCLAR) CLEAR Glucose (test code = UGLUC) NEGATIVE NEGATIVE N Bilirubin (test code = UBILI) NEGATIVE NEGATIVE N Ketones (test code = UKET) NEGATIVE NEGATIVE N Specific [place] (test code = USPGR) 1.020 1.005-1.030 A Blood (test code = UBLD) NEGATIVE NEGATIVE N PH (test code = UPH) 8.5 4.5-8.0 A Protein (test code = UPROT) 30 NEGATIVE A Urobilinogen (test code = U UROB) 1.0 >0.2 A Nitrite (test code = UNITR) NEGATIVE NEGATIVE N Leukocyte Esterase (test code = NEGATIVE NEGATIVE N ULEUK) WBC (test code = WBCUR) 5-10 0-5 A RBC (test code = RBCUR) 0-5 0-5 N Epithial Cells (test code = U EPI) TNTC 0-10 A Bacteria (test code = UBACT) 1+ None Seen,Trace A [facility]kinPREGNANCY TEST, Urine [id number] 13:35:00 Test Item Value Reference Range Interpretation Comments (Urine) (test code = Negative PREGU) If a specimen is collected by a nurse, then you MUST fill out the Collected and Collected By aguayo [facility]-LufkinPREGNANCY TEST, Serum [id number] 16:42:00 Test Item Value Reference Range Interpretation Comments (Serum) (test code = Positive PREGS) [address]-LufkinLIPASE, [id number] 16:41:00 Test Item Value Reference Range Interpretation Comments Lipase (test code = LIPA) 27 U/L 8-[address]-[id number] 16:41:00 Test Item Value Reference Range Interpretation Comments Glucose (test code 93 mg/dl 75-110 = GLU) BUN (test code = 8.0 mg/dl 6.0-17.0 BUN) Creatinine (test 0.8 mg/dl 0.4-1.2 code = CREA) Sodium (test code = 141 mmol/l 137-145 NA) Potassium (test 3.9 mmol/l 3.5-5.0 code = K) Chloride (test code 108 mmol/l 98-107 H = CL) CO2 (test code = 27 mmol/l 22-30 CO2) Calcium (test code 8.9 mg/dl 8.4-10.2 = CALC) T Protein (test 7.2 gm/dl 5.1-8.7 code = TP) Albumin (test code 4.1 gm/dl 3.5-4.6 = ALB) A/G Ratio (test 1.3 % 1.1-2.2 code = AGRAT) AST (SGOT) (test 25 U/L 11-36 code = AST) ALT (SGPT) (test 34 U/L 11-40 code = ALT) Alkaline Phos (test 75 U/L 47-114 code = ALKP) Total Bilirubin 0.4 mg/dl 0.2-1.2 (test code = TBIL) Globulin (test code 3.1 gm/dl 2.3-3.5 = GLOBU) Calcium, Corrected 8.8 mg/dl 8.4-10.2 Various f ormulas exist (test code = for corrected s duyen CALCCORR) calcium results , each yielding differ ent values. This co rrected result was base d on the formula: Co rrected Calcium = Serum Calcium + [0.8 * ( 4 - SerumAlbumin)] EGFR if >60 [place] (test code mL/min/1.73m\\ = EGFRAA) S\\2 EGFR if Non- >60 Estimate d Glomerular [place] (test code mL/min/1.73m\\ Filtrat ion Rate (eGFR) = EGFRNA) S\\2 Reference Inter vals Decision Points for 18 years and older and average body ma ss: >= 60 Does not exc lude kidney disease. 30 - 59 Suggests mod erate chronic kidney disease and indicates t he need for further investigation including asses sment of proteinuria and cardiovascular factors. < 30 U sually indicates a nee d for referral for assessment and management of c hronic kidney failure. er [address] [place] [address]-LufkinURINALYSIS WITH [id number] 16:30:00 Test Item Value Reference Range Interpretation Comments Color (test code = UCOLR) YELLOW Clarity (test code = UCLAR) CLEAR Glucose (test code = UGLUC) NEGATIVE NEGATIVE N Bilirubin (test code = UBILI) NEGATIVE NEGATIVE N Ketones (test code = UKET) NEGATIVE NEGATIVE N Specific [place] (test code = USPGR) 1.015 1.005-1.030 A Blood (test code = UBLD) NEGATIVE NEGATIVE N PH (test code = UPH) 8.0 4.5-8.0 A Protein (test code = UPROT) 100 NEGATIVE A Urobilinogen (test code = U UROB) 1.0 >0.2 A Nitrite (test code = UNITR) NEGATIVE NEGATIVE N Leukocyte Esterase (test code = NEGATIVE NEGATIVE N ULEUK) WBC (test code = WBCUR) 0-5 0-5 N RBC (test code = RBCUR) 0-5 0-5 N Epithial Cells (test code = U EPI) 10-20 0-10 A Bacteria (test code = UBACT) 2+ None Seen,Trace A [address] WITH AUTO [id number] 16:29:00 Test Item Value Reference Range Interpretation Comments WBC (test code = 10.66 4.80-10.80 WBC) 10\\S\\3/ul RBC (test code = 3.94 10\\S\\6/ul 4.20-5.40 L RBC) Hemoglobin (test 12.0 gm/dl 12.0-14.0 code = HGB) Hematocrit (test 38.0 % 37.0-47.0 code = HCT) MCV (test code = 96.4 fL 81.0-99.0 MCV) MCH (test code = 30.5 pg 27.0-31.0 MCH) MCHC (test code = 31.6 gm/dl 33.0-37.0 L MCHC) RDW (test code = 11.9 % 11.5-14.5 RDWVC) Platelet (test code 376 10\\S\\3/ul 130-400 = PLT) MPV (test code = 10.5 fL 7.4-10.4 A "NOT MEASUR ED" MPV) RESULTS ARE DIS PLAYED WHEN THE INSTRU MENT HAS A SUPPRESSE D OR UNREPORTABLE RE SULT. THIS WILL MOST OFTEN HAPPEN WITH THE MPV WHEN THERE IS A N ABNORMAL PLATEL ET DISTRIBUTION DU E TO A CRITICAL LOW VA LUE OR PLATELET CLUMPI NG. THE RDW MAY BE SUPPRESSED IF T HERE ARE MULTIPLE PE AKS PRESENT ON THE RBC HISTOGRAM. IN T HIS CASE, A MANUAL REVIEW OF THE SLIDE WI LL BE PERFORMED, AND RBC MORPHOLOGY WILL BE NOTED ON THE RE PORT. NE% (test code = 67.6 % 42.0-75.0 NE) LY% (test code = 26.5 % 13.0-42.0 LY) MO% (test code = 5.0 % 4.0-14.0 MO) EO% (test code = 0.2 % 1.0-3.0 L EO) BA% (test code = 0.4 % 1.0-3.0 L BA) IG% (test code = 0.3 % 0.0-0.4 IG%) er [address] [place], [place] [address]PREGNANCY TEST, Urine [id number] 15:06:00 Test Item Value Reference Range Interpretation Comments (Urine) (test code = Negative PREGU) If a specimen is collected by a nurse, then you MUST fill out the Collected and Collected By aguayo [facility] URINALYSIS WITHOUT [id number] 15:04:00 Test Item Value Reference Range Interpretation Comments Color (test code = UCOLR) YELLOW Clarity (test code = UCLAR) SL CLOUDY Glucose (test code = UGLUC) NEGATIVE NEGATIVE N Bilirubin (test code = UBILI) NEGATIVE NEGATIVE N Ketones (test code = UKET) NEGATIVE NEGATIVE N Specific [place] (test code = 1.020 1.005-1.030 A USPGR) Blood (test code = UBLD) NEGATIVE NEGATIVE N PH (test code = UPH) 6.5 4.5-8.0 A Protein (test code = UPROT) NEGATIVE NEGATIVE N Urobilinogen (test code = U UROB) 0.2 >0.2 N Nitrite (test code = UNITR) NEGATIVE NEGATIVE N Leukocyte Esterase (test code = NEGATIVE NEGATIVE N ULEUK) [facility]
--- NOTE | 2022-07-14 09:54 | RAD REPORT ---
EXAM DESCRIPTION: US - Abdomen Exam Limited - 07/14/2022 9:43 am CLINICAL HISTORY: ruq abdominal pain COMPARISON: No comparisons FINDINGS: No gallstones, sludge or other abnormalities within the gallbladder lumen. There is no wal l thickening or pericholecystic fluid. No common duct stone or biliary tree dilatation identified. Partially imaged liver shows an increased parenchymal echogenicity that may indicate fatty infiltrati on. IMPRESSION: Normal gallbladder and biliary tree ultrasound. Partially imaged liver shows findings suggesting fatty infiltration. Assessment is incomplete.
[2022-07-14 10:22] LABS: Hematocrit 42.8 % (36.0-45.0); Lymphocytes % 33.3 % (15.3-44.8); MCV 91.5 fL (80-100); MPV 8.7 fL (7.6-11.3); RBC Red Blood Cell Count 4.67 M/uL (3.86-4.86)
[2022-07-14 10:23] LABS: Albumin 3.8 g/dL (3.4-5.0); Bilirubin Total 0.9 mg/dL (0.2-1.0); Potassium 3.6 mmol/L (3.5-5.1)
[2022-07-14 11:04] LABS: Urine Blood Trace-lysed (Negative); Urine Glucose Negative (Negative); Urine Protein 1+ (Negative)
--- NOTE | 2022-07-14 11:27 | RAD REPORT ---
EXAM DESCRIPTION: CT - Chest For Pe Angio - 07/14/2022 11:17 am CLINICAL HISTORY: right sided chest pain, elevated d-dimer COMPARISON: No comparisons TECHNIQUE: Dynamically enhanced 3 mm thick images of the chest were obtained during administration o f approximately 150mL Isovue 370 IV contrast. Coronal and oblique MIP reconstruction images were gene rated and reviewed. Exam utilizes a protocol to evaluate the pulmonary arterial tree. All CT scans are performed using dose optimization technique as appropriate and may include automated exposure control or mA/KV adjustment according to patient size. FINDINGS: Pulmonary arterial tree contrast density was not optimal bolus felt to be sufficient for d iagnostic purposes. No pulmonary emboli are identified. The aorta as imaged shows no acute or suspicious finding. No pericardial thickening or effusion. No infiltrate or mass in the lung parenchyma. No pleural effusion or pleural thickening. No mediastinal or hilar suspicious masses. No chest wall masses or abnormal axillary lymphadenopathy. IMPRESSION: No pulmonary emboli identified. No other significant or suspicious findings.
--- NOTE | 2022-07-14 11:29 | RAD REPORT ---
EXAM DESCRIPTION: CT - Abdomen Pelvis W Contrast - 07/14/2022 11:17 am CLINICAL HISTORY: right sided abdominal pain COMPARISON: No comparisons TECHNIQUE: Biphasic, helical CT imaging of the abdomen and pelvis was performed following 100 ml non -ionic IV contrast. Oral contrast: No. All CT scans are performed using dose optimization technique as appropriate and may include automated exposure control or mA/KV adjustment according to patient size. FINDINGS: No suspicious findings in the lung bases. The liver, spleen, and pancreas show no suspicious findings. Gallbladder and biliary tree are also wi thout suspicious finding. Gallstones can be occult on CT imaging. Symmetric renal function is seen with no hydronephrosis or suspicious renal mass. No pyelonephritis o r acute parenchymal process. No bladder abnormalities. No adrenal abnormalities. Uterus and ovaries are normal. No dilated bowel loops or bowel wall thickening. No free air, free fluid or inflammatory stranding. No hernia, mass or bulky lymphadenopathy. No suspicious bony findings. IMPRESSION: Contrast enhanced CT abdomen and pelvis showing no significant or suspicious finding.
--- NOTE | 2022-07-14 12:26 | EDPHYS ---
Physician Documentation [facility] Name: Milagro Steele Age: 31 yrs Sex: Female : 1990 Arrival Date: 07/14/2022 Time: 08:40 Bed 13 Private MD: ED Physician Nav Noel HPI: 07/14 09:21 This 31 yrs old Black Female presents to ER via EMS with complaints of Abdominal jmm Problem, Numbness. 09:21 The patient presents with abdominal pain. Onset: The symptoms/episode began/occurred jmm gradually. The symptoms do not radiate. This is a 31 year old female with a history of anxiety, htn that presents to the ED with complaints of right upper abdominal pain, worse when she takes a deep breath in. Also complains of right upper extremity pain which radiates into her hand. Denies weakness . Historical: - Allergies: 08:44 No Known Allergies; iw - Home Meds: 08:44 None [Active]; iw - PMHx: 08:44 Anxiety; depressive disorder; Hypertensive disorder; iw - PSHx: 08:44 removal of ovarian cyst; iw ROS: 09:21 Constitutional: Negative for fever, chills, and weight loss, Cardiovascular: Negative jmm for chest pain, palpitations, and edema, Respiratory: Negative for shortness of breath, cough, wheezing, and pleuritic chest pain. 09:21 Abdomen/GI: Positive for abdominal pain. 09:21 All other systems are negative. Exam: 09:21 Constitutional: This is a well developed, well nourished patient who is awake, alert, jmm and in no acute distress. Head/Face: atraumatic. Eyes: EOMI, no conjunctival erythema appreciated ENT: Moist Mucus Membranes Neck: Trachea midline, Supple Chest/axilla: Normal chest wall appearance and motion. Cardiovascular: Regular rate and rhythm. No edema appreciated Respiratory: Normal respirations, no respiratory distress appreciated 09:21 Back: Normal ROM Skin: General appearance color normal MS/ Extremity: Moves all extremities, no obvious deformities appreciated, no edema noted to the lower extremities Neuro: Awake and alert Psych: Behavior is normal, Mood is normal, Patient is cooperative and pleasant 09:21 Abdomen/GI: Inspection: abdomen appears normal, Bowel sounds: normal, Palpation: soft, moderate abdominal tenderness, in the right upper quadrant. Vital Signs: 09:13 BP 145 / 88; Pulse 72; Resp 18; Temp 98.1; Pulse Ox 99% ; Weight 127.01 kg; Height 5 iw ft. 4 in. (162.56 cm); Pain 8/10; 10:15 BP 137 / 78; Pulse 86; Resp 17; Pulse Ox 96% on R/A; tw2 11:17 BP 148 / 93; Pulse 79; Resp 17; Pulse Ox 96% on R/A; tw2 12:27 BP 139 / 81; Pulse 67; Resp 17; Pulse Ox 100% on R/A; tw2 09:13 Body Mass Index 48.06 (127.01 kg, 162.56 cm) iw MDM: 09:17 Patient medically screened. [facility] 12:24 Data reviewed: vital signs, nurses notes. Counseling: I had a detailed discussion with sirena the patient and/or guardian regarding: the historical points, exam findings, and any diagnostic results supporting the discharge/admit diagnosis, lab results, radiology results, the need for outpatient follow up, to return to the emergency department if symptoms worsen or persist or if there are any questions or concerns that arise at home. 07/14 09:18 Order name: CBC with Diff; Complete Time: 10:30 [facility] 07/14 09:18 Order name: CMP; Complete Time: 10:30 [facility] 07/14 09:18 Order name: Lipase; Complete Time: 10:30 [facility] 07/14 09:55 Order name: D-Dimer; Complete Time: 10:30 [facility] 07/14 11:04 Order name: Urine Dipstick-Ancillary; Complete Time: 11:12 [facility] 07/14 11:16 Order name: Urine --Ancillary (enter results) bd 07/14 09:18 Order name: US Abdomen Limited; Complete Time: 09:55 [facility] 07/14 09:18 Order name: IV Saline Lock; Complete Time: 10:04 [facility] 07/14 09:18 Order name: Labs collected and sent; Complete Time: 10:04 [facility] 07/14 10:37 Order name: CT Chest For PE Angio; Complete Time: 11:32 [facility] 07/14 10:37 Order name: CT Abd/Pelvis - IV Contrast Only; Complete Time: 11:32 [facility] Administered Medications: No medications were administered Disposition: 17:40 Co-signature as Attending Physician, Nav Noel MD I agree with the assessment and rt plan of care. Disposition Summary: 07/14/22 12:25 Discharge Ordered Location: Home [facility] Condition: Stable jmm Diagnosis - Abdominal pain, unspecified jmm Followup: jmm - With: Private Physician - When: 2 - 3 days - Reason: Recheck today's complaints, Continuance of care, Re-evaluation by your physician Discharge Instructions: - Discharge Summary Sheet jmm - Abdominal Pain, Adult jmm Forms: - Medication Reconciliation Form [facility] - Thank You Letter [facility] - Antibiotic Education [facility] - Prescription Opioid Use [facility] - Work release form tw2 Prescriptions: - Pepcid 20 mg Oral Tablet - take 1 tablet by ORAL route every 12 hours for 10 days; 20 tablet; Refills: 0, [facility] Product Selection Permitted - orphenadrine citrate 100 mg Oral Tablet Sustained Release - take 1 tablet by ORAL route 2 times per day As needed; 20 tablet; Refills: 0, [facility] Product Selection Permitted Signatures: Dispatcher [employer] Misael Puri PA PA jmm Williams, Irene, Nav Bee RN, MD MD rt
--- NOTE | 2022-07-14 12:26 | ER ---
Nurse's Notes [facility] Name: Milagro Steele Age: 31 yrs Sex: Female : 1990 Arrival Date: 07/14/2022 Time: 08:40 Bed 13 Private MD: Diagnosis: Abdominal pain, unspecified Presentation: 07/14 08:43 Chief complaint: EMS states: pt c/o right shoulder pain , was seen here last week for iw same symptoms, was given anxiety meds and [facility] Coronavirus screen: At this time, the client does not indicate any symptoms associated with coronavirus-19. Ebola Screen: Patient negative for fever greater than or equal to 101.5 degrees Fahrenheit, and additional compatible Ebola Virus Disease symptoms Patient denies exposure to infectious person. Patient denies travel to an Ebola-affected area in the 21 days before illness onset. No symptoms or risks identified at this time. Risk Assessment: Do you want to hurt yourself or someone else? Patient reports no desire to harm self or others. Onset of symptoms was July 14, 2022. 08:43 Method Of Arrival: EMS: [facility] iw 08:43 Acuity: SAM 4 iw 09:11 Chief complaint: Patient states: I woke up and my head was spinning, my BP was high , I iw laid down and my head was hurting and they rechecked my BP and it was high again, I've been here before for this and yall get my BP down but then it goes back up at the facility, I'm supposed to be taking anxiety meds, supposed to take xanax , I'm having pain in my right shoulder when my BP goes high . Also when I take a deep breath there is s knot on right side of my ribs that hurts bad X 1 week. 09:13 Initial Sepsis Screen: Does the patient meet any 2 criteria? No. Patient's initial iw sepsis screen is negative. Does the patient have a suspected source of infection? No. Patient's initial sepsis screen is negative. 09:13 Acuity: SAM 3 iw Historical: - Allergies: 08:44 No Known Allergies; iw - Home Meds: 08:44 None [Active]; iw - PMHx: 08:44 Anxiety; depressive disorder; Hypertensive disorder; iw - PSHx: 08:44 removal of ovarian cyst; iw Screenin:13 Abuse screen: Denies threats or abuse. Denies injuries from another. Nutritional iw screening: No deficits noted. Tuberculosis screening: No symptoms or risk factors identified. Fall Risk None identified. Assessment: 09:15 Reassessment: Patient appears in no apparent distress at this time. No changes from tw2 previously documented assessment. Patient and/or family updated on plan of care and expected duration. Pain level reassessed. Patient is alert, oriented x 3, equal unlabored respirations, skin warm/dry/pink. 10:15 Reassessment: Patient appears in no apparent distress at this time. No changes from tw2 previously documented assessment. Patient and/or family updated on plan of care and expected duration. Pain level reassessed. Patient is alert, oriented x 3, equal unlabored respirations, skin warm/dry/pink. 11:18 Reassessment: Patient appears in no apparent distress at this time. No changes from tw2 previously documented assessment. Patient and/or family updated on plan of care and expected duration. Pain level reassessed. Patient is alert, oriented x 3, equal unlabored respirations, skin warm/dry/pink. 12:27 Reassessment: Patient appears in no apparent distress at this time. No changes from tw2 previously documented assessment. Patient and/or family updated on plan of care and expected duration. Pain level reassessed. Patient is alert, oriented x 3, equal unlabored respirations, skin warm/dry/pink. 12:30 Reassessment: provider at bedside at this time. tw2 Vital Signs: 09:13 BP 145 / 88; Pulse 72; Resp 18; Temp 98.1; Pulse Ox 99% ; Weight 127.01 kg; Height 5 iw ft. 4 in. (162.56 cm); Pain 8/10; 10:15 BP 137 / 78; Pulse 86; Resp 17; Pulse Ox 96% on R/A; tw2 11:17 BP 148 / 93; Pulse 79; Resp 17; Pulse Ox 96% on R/A; tw2 12:27 BP 139 / 81; Pulse 67; Resp 17; Pulse Ox 100% on R/A; tw2 09:13 Body Mass Index 48.06 (127.01 kg, 162.56 cm) iw ED Course: 08:40 Patient arrived in ED. as 08:44 Triage completed. iw 08:44 Arm band placed on. iw 09:02 Misael Mayer PA is PHCP. [facility] 09:02 Nav Noel MD is Attending Physician. [facility] 09:16 Bed in low position. Call light in reach. Pulse ox on. NIBP on. tw2 09:33 Jeni Velasquez, RN is Primary Nurse. tw2 09:45 US Abdomen Limited In Process Unspecified. EDMS 10:03 Inserted saline lock: 20 gauge in left antecubital area, using aseptic technique. Blood tw2 collected. 11:19 CT Chest For PE Angio In Process Unspecified. EDMS 11:19 CT Abd/Pelvis - IV Contrast Only In Process Unspecified. EDMS 12:38 No provider procedures requiring assistance completed. IV discontinued, intact, tw2 bleeding controlled, No redness/swelling at site. Pressure dressing applied. Administered Medications: No medications were administered Medication: 12:27 VIS not applicable for this client. tw2 Outcome: 12:25 Discharge ordered by MD. [facility] 12:38 Discharged to home ambulatory. tw2 12:38 Condition: stable 12:38 Discharge instructions given to patient, Instructed on discharge instructions, follow up and referral plans. medication usage, Demonstrated understanding of instructions, follow-up care, medications, Prescriptions given X 2. 12:39 Patient left the ED. tw2 Signatures: Dispatcher [employer] [facility] Misael Mayer PA PA Bessie Colunga as Pallavi Durand, RN RN iw Jeni Velasquez, RN RN tw2 Corrections: (The following items were deleted from the chart) 09:14 09:13 Pulse 72bpm; Resp 18bpm; Pulse Ox 99%; iw iw 09:14 09:13 BP 145 / 88; Pulse 72bpm; Resp 18bpm; Pulse Ox 99%; iw iw 12:31 12:30 BP 139 / 81; Pulse 72bpm; Resp 17bpm; Pulse Ox 99% RA; tw2 tw2
[2022-07-14 12:43] VITALS: TEMP 98.1
[2022-07-14 12:47] VITALS: BP 139/81; O2SAT 100
== END 2022-07-14 12:39 | disposition home or self-care (01) ==
LOC: ER 08:38
DX: R10.11 Right upper quadrant pain (principal)
CPT/HCPCS: 36415; 71275; 74177; 76705; 80053; 81003; 81025; 83690; 85025; 85379; 99284; Q9967